=== PATIENT | male | born 1960 | race African-American/Black ===

== ENCOUNTER 2017-12-30 10:43 | Inpatient (IN) | payer OTHER ==
[2017-12-30 11:10] VITALS: BMI 43.4
--- NOTE | 2017-12-30 13:47 | HP ---
CIWA Score - CIWA Score Nausea/Vomitin-No Nausea/No Vomiting Muscle Tremors: 3 Anxiety: 4-Mod. Anxious/Guarded Agitation: 4-Moderately Restless Paroxysmal Sweats: 3 Orientation: 0-Oriented Tacttile Disturbances: 2-Mild Itch/Numbness/Burn Auditory Disturbances: 0-None Visual Disturbances: 0-None Headache: 0-None Present CIWA-Ar Total Score: 16 Admission ROS BHS - HPI Chief Complaint: "I came here to Detox and to try to jumpstart my life and get back on track." Patient is here to Detox from Alcohol. Allergies/Adverse Reactions: Allergies Allergy/AdvReac Type Severity Reaction Status Date / Time lisinopril Allergy Severe Swelling Verified 12/30/17 12:54 History of Present Illness: Patient is a 57 YO male here to Detox from Alcohol. This is patient's first Detox admission at [facility]. Patient had a Detox and Rehab admission at the [facility] ( [place] in 2017. Longest period of Sobriety in recent years: approx. 8 months (2016). Exam Limitations: No Limitations - Ebola screening Have you traveled outside of the country in the last 21 days: No Have you had contact with anyone from an Ebola affected area: No Have you been sick,other than usual withdrawal symptoms: No Do you have a fever: No - Review of Systems Constitutional: Diaphoresis, Malaise, Night Sweats, Changes in sleep EENT: reports: Hearing Loss (Patient reports that "he got a piece of cotton stuck in his right ear" approx. 2 months ago and that his hearing has been affected by it. Patient reports that he will go to [facility] to follow-up for this after Discharge.), Nose Congestion, Sinus Pressure Respiratory: reports: No Symptoms reported Cardiac: reports: No Symptoms Reported GI: reports: Nausea : reports: Frequency Musculoskeletal: reports: Back Pain, Joint Pain, Joint Stiffness Integumentary: reports: No Symptoms Reported Neuro: reports: Tremors Endocrine: reports: No Symptoms Reported Hematology: reports: No Symptoms Reported Psychiatric: reports: Judgement Intact, Mood/Affect Appropiate, Orientated x3 Other Systems: Reviewed and Negative Patient History - Patient Medical History Hx Anemia: No Hx Asthma: No Hx Chronic Obstructive Pulmonary Disease (COPD): No Hx Cancer: No Hx Cardiac Disorders: Yes (Congestive Heart Failure; On meds.) Hx Congestive Heart Failure: Yes (On meds.) Hx Hypertension: Yes (On meds.) Hx Hypercholesterolemia: No (In past, Not currently.) Hx Pacemaker: No HX Cerebrovascular Accident: No Hx Seizures: No Hx Dementia: No Hx Diabetes: No Hx Gastrointestinal Disorders: No Hx Liver Disease: Yes (Hep B in past; Resolved without medication.) Hx Genitourinary Disorders: No Hx Sexually Transmitted Disorders: Yes (gonorrhea; Treated.) Hx Renal Disease (ESRD): No Hx Thyroid Disease: No Hx Human Immunodeficiency Virus (HIV): No (Last Tested: 11/2016:NEGATIVE.) Hx Hepatitis C: No (Last Tested: 12/2016:NEGATIVE.) Hx Depression: No Hx Suicide Attempt: No (PATIENT DENIES CURRENT SI / HI.) Hx Bipolar Disorder: Yes (On meds.) Hx Schizophrenia: No Other Medical History: DENIES. - Patient Surgical History Past Surgical History: Yes Hx Neurologic Surgery: No Hx Cataract Extraction: No Hx Cardiac Surgery: No Hx Lung Surgery: No Hx Breast Surgery: No Hx Breast Biopsy: No Hx Abdominal Surgery: No Hx Appendectomy: No Hx Cholecystectomy: No Hx Genitourinary Surgery: No Hx Section: No Hx Orthopedic Surgery: No Other Surgical History: hemorrhoidectomy in 2009/terndon repair, left achiles heel in 1996 Anesthesia Reaction: No - PPD History Previous Implant?: Yes Documented Results: Positive w/o proof Implanted On Prior R Admission?: No PPD to be Administered?: No - Reproductive History Patient is a Female of Child Bearing Age (11 -55 yrs old): No (PATIENT IS MALE.) - Smoking Cessation Smoking history: Current every day smoker (Patient declines Nicotine Replacement Patch and Gum.) Have you smoked in the past 12 months: Yes Aproximately how many cigarettes per day: 5 Cigars Per Day: 0 Hx Chewing Tobacco Use: No Initiated information on smoking cessation: Yes 'Breaking Loose' booklet given: 12/30/17 (GIVEN TO PATIENT.) - Substance & Tx. History Hx Alcohol Use: Yes Hx Substance Use: Yes Substance Use Type: Alcohol, Cocaine, Marijuana Hx Substance Use Treatment: Yes (Previous Detox/[facility] admissions Last: [facility] ( [place]): 2017.) - Substances Abused Crack Route: Smoking Frequency: Daily Amount used: $60-70 Age of first use: 34 Date of Last Use: 12/28/17 Alcohol-beer Route: Oral Frequency: Daily Amount used: 10 (25 oz.) Age of first use: 13 Date of Last Use: 12/30/17 Marijuana Route: Smoking Frequency: Daily Amount used: $10 Age of first use: 12 Date of Last Use: 12/28/17 Family Disease History - Family Disease History Family Disease History: Heart Disease: Mother (HTN) Admission Physical Exam [facility] - Vital Signs Vital Signs: Vital Signs - 24 hr 12/30/17 11:04 Temperature 97.2 F L Pulse Rate 73 Respiratory 18 Rate Blood Pressure 183/94 - Physical General Appearance: Yes: No Apparent Distress, Nourished, Appropriately Dressed , Tremorous, Anxious HEENTM: Yes: Hearing grossly Normal, Normocephalic, Normal Voice, JOVI, Pharynx Normal Respiratory: Yes: Chest Non-Tender, Lungs Clear, No Respiratory Distress, No Accessory Muscle Use Neck: Yes: No masses,lesions,Nodules, Supple, Trachea in good position Breast: Yes: Breast Exam Deferred Cardiology: Yes: Regular Rhythm, Regular Rate, S1, S2 Abdominal: Yes: Normal Bowel Sounds, Non Tender, Soft, Protuberent Genitourinary: Yes: Frequency Back: Yes: Decreased Range of Motion Musculoskeletal: Yes: Gait Steady, Back pain, Joint Stiffness Extremities: Yes: Normal Capillary Refill, Normal Range of Motion, Non-Tender, Tremors Neurological: Yes: Fully Oriented, Alert, Normal Mood/Affect, Normal Response Integumentary: Yes: Normal Color, Dry, Warm Lymphatic: Yes: Within Normal Limits - Diagnostic (1) Alcohol dependence with uncomplicated withdrawal Current Visit: Yes Status: Acute (2) Cocaine dependence, uncomplicated Current Visit: Yes Status: Chronic (3) Cannabis dependence, uncomplicated Current Visit: Yes Status: Chronic (4) Nicotine dependence Current Visit: Yes Status: Chronic Qualifiers: Nicotine product type: cigarettes Substance use status: uncomplicated Qualified Code(s): F17.210 - Nicotine dependence, cigarettes, uncomplicated (5) Hypertension Current Visit: Yes Status: Chronic Qualifiers: Hypertension type: essential hypertension Qualified Code(s): I10 - Essential (primary) hypertension (6) Congestive heart failure (CHF) Current Visit: Yes Status: Chronic Qualifiers: Heart failure type: unspecified Heart failure chronicity: unspecified Qualified Code(s): I50.9 - Heart failure, unspecified (7) History of bipolar disorder Current Visit: Yes Status: Suspected (8) Hemorrhoids Current Visit: Yes Status: Chronic Qualifiers: Hemorrhoid type: unspecified Qualified Code(s): K64.9 - Unspecified hemorrhoids (9) History of positive PPD Current Visit: Yes Status: Chronic Cleared for Admission [facility] - Detox or Rehab [facility] Level of Care: Medically Managed Detox Regimen/Protocol: Librium [facility] Breath Alcohol Content Breath Alcohol Content: 0 Urine Drug Screen - Results Drug Screen Negative: Yes Urine Drug Screen Results: THC-Marijuana, ARIANA-Cocaine
[2017-12-30] MEDS ORDERED: ACETAMINOPHEN 325 MG TABLET (FP) PO PRN (14:18)
[2017-12-30] MEDS ORDERED: IBUPROFEN 400 MG TABLET (FP) PO PRN (14:18)
[2017-12-30] MEDS ORDERED: MAGNESIUM CITRATE 300 ML BOTTLE PO PRN (14:18)
[2017-12-30] MEDS ORDERED: MENTHOL/PHENOL 1 EACH UD MM PRN (14:18)
[2017-12-30] MEDS ORDERED: LOPERAMIDE HCL 2 MG CAPSULE PO PRN (14:18)
[2017-12-30] MEDS ORDERED: MAGNESIUM HYDROX 2400MG/30ML ORAL SUSPENSION 30 ML CUP PO PRN (14:18)
[2017-12-30] MEDS ORDERED: P-EPHED 60MG/TRIPROLIDI 2.5MG TABLET PO PRN (14:18)
[2017-12-30] MEDS ORDERED: MAG HYDROX/AL HYDROX/SIMETH 30 ML UNIT-DOSE CUP PO PRN (14:18)
[2017-12-30] MEDS ORDERED: chlordiazePOXIDE HCL 25 MG CAPSULE PO PRN (14:18)
[2017-12-30] MEDS ORDERED: guaiFENesin/D-METHORPHAN HB 10 ML UNIT-DOSE CUPS PO PRN (14:18)
[2017-12-30] MEDS ORDERED: DOCUSATE SODIUM 100 MG CAPSULE (FP) PO PRN (14:22)
[2017-12-30] MEDS ORDERED: WITCH HAZEL 50% (TUCKS) 40 PAD/JAR PAD TP PRN (14:22)
[2017-12-30] MEDS ORDERED: BENZOCAINE 28 GM HEMORRHOIDAL OINTMENT PR PRN (14:23)
[2017-12-30] MEDS ORDERED: chlordiazePOXIDE HCL 25 MG CAPSULE PO ONE (15:30)
[2017-12-30] MEDS: ASPIRIN 81 MG CHEWABLE TABLETS PO SCH (15:44)
[2017-12-30 16:58] LABS: HEMOGLOBIN 12.8 GM/dL (11.7-16.9)
[2017-12-30 17:00] LABS: HEMATOCRIT 37.8 % (35.4-49); MCH 31.9 pg (25.7-33.7); MCHC 33.9 g/dl (32.0-35.9); MEAN CELL VOLUME 94.1 fl (80-96); MEAN PLT VOLUME 8.4 fl (7.5-11.1); PLATELET COUNT 233 K/MM3 (134-434); RBC 4.02 M/mm3 (4.00-5.60); RDW 13.8 % (11.9-15.9); WHITE BLOOD COUNT 4.7 K/mm3 (4.0-10.0)
[2017-12-30] MEDS: chlordiazePOXIDE HCL 25 MG CAPSULE PO SCH ×2 (17:09→22:08)
[2017-12-30 17:37] LABS: URINE APPEARANCE SLCLOUDY; URINE BILIRUBIN NEGATIVE (<2.0 mg/dL); URINE COLOR YELLOW; URINE GLUCOSE (UA) NEGATIVE (NEGATIVE); URINE KETONE NEGATIVE (NEGATIVE); URINE LEUK ESTERASE NEGATIVE (NEGATIVE); URINE NITRITE NEGATIVE (NEGATIVE)
[2017-12-30 17:47] LABS: URINE PROTEIN 1+ (NEGATIVE)
[2017-12-30 18:08] LABS: EPI CELLS RARE /HPF (FEW); URINE MUCUS RARE
[2017-12-30 19:16] LABS: ALBUMIN 3.3 g/dl (3.4-5.0); ANION GAP 6 (8-16); BLOOD UREA NITROGEN 18 mg/dL (7-18); CALCIUM 8.1 mg/dL (8.5-10.1); CHLORIDE 111 mmol/L (98-107); CO2 26 mmol/L (21-32); GLUCOSE,RANDOM 135 mg/dL (74-106); POTASSIUM 3.8 mmol/L (3.5-5.1); SGPT/ALT 27 U/L (12-78); SODIUM 143 mmol/L (136-145)
[2017-12-30 19:19] LABS: ALK PHOS 83 U/L (45-117); BILIRUBIN,TOTAL 0.3 mg/dL (0.2-1.0); CREATININE 1.4 mg/dL (0.7-1.3); SGOT/AST 23 U/L (15-37)
[2017-12-30] MEDS ORDERED: MELATONIN 5 MG TABLETS PO PRN (22:00)
[2017-12-30] MEDS: THIAMINE HCL 100 MG TABLET (FP) PO SCH (22:08)
[2017-12-30] MEDS: MICONAZOLE NITRATE TP SCH (22:09)
[2017-12-30] MEDS: CARVEDILOL 25 MG TABLET (FP) PO SCH (22:09)
[2017-12-30] MEDS: ISOSORBIDE DINITRATE 10 MG TABLET (FP) PO SCH (22:09)
[2017-12-30] MEDS: SACUBITRIL/VALSARTAN 24 MG-26 MG TABLET PO SCH (22:09)
[2017-12-30] MEDS: hydrALAZINE HCL 50 MG TABLET (FP) PO SCH (22:09)
[2017-12-31] MEDS: chlordiazePOXIDE HCL 25 MG CAPSULE PO SCH ×4 (05:31→22:11)
[2017-12-31] MEDS: ISOSORBIDE DINITRATE 10 MG TABLET (FP) PO SCH ×3 (07:41→22:12)
[2017-12-31] MEDS: hydrALAZINE HCL 50 MG TABLET (FP) PO SCH ×3 (07:41→22:11)
--- NOTE | 2017-12-31 09:51 | EKG ---
Test Reason : Blood Pressure : / mmHG Vent. Rate : 072 BPM Atrial Rate : 072 BPM P-R Int : 196 ms QRS Dur : 104 ms QT Int : 424 ms P-R-T Axes : 064 041 -32 degrees QTc Int : 464 ms NORMAL SINUS RHYTHM T WAVE ABNORMALITY, CONSIDER INFERIOR ISCHEMIA ABNORMAL ECG NO PREVIOUS ECGS AVAILABLE Confirmed by LESTER CORTÉS MD ([id number]) on 12/31/2017 9:51:43 AM Referred By: Confirmed By:LESTER CORTÉS MD
[2017-12-31] MEDS: CARVEDILOL 25 MG TABLET (FP) PO SCH ×2 (10:23→22:11)
[2017-12-31] MEDS: FUROSEMIDE 40 MG TABLET (FP) PO SCH (10:23)
[2017-12-31] MEDS: PRENATAL VITAMINS W/ FOLIC ACID TABLET (FP) PO SCH (10:23)
[2017-12-31] MEDS: SPIRONOLACTONE 25 MG TABLET (FP) PO SCH (10:23)
[2017-12-31] MEDS: SACUBITRIL/VALSARTAN 24 MG-26 MG TABLET PO SCH ×2 (10:23→22:11)
[2017-12-31] MEDS: ASPIRIN 81 MG CHEWABLE TABLETS PO SCH (10:23)
[2017-12-31] MEDS: MICONAZOLE NITRATE TP SCH ×2 (10:24→22:13)
--- NOTE | 2017-12-31 12:47 | PN ---
S CIWA - CIWA Score Nausea/Vomitin-No Nausea/No Vomiting Muscle Tremors: 4-Moderate,w/Arms Extend Anxiety: 4-Mod. Anxious/Guarded Agitation: 4-Moderately Restless Paroxysmal Sweats: 3 Orientation: 0-Oriented Tacttile Disturbances: 0-None Auditory Disturbances: 0-None Visual Disturbances: 0-None Headache: 0-None Present CIWA-Ar Total Score: 15 BHS Progress Note (SOAP) Subjective: ANXIETY,SWEATS,SLIGHT TREMORS,FATIGUE Objective: 12/31/17 12:46 Vital Signs Temperature 95.6 F L 12/31/17 10:02 Pulse Rate 71 12/31/17 10:02 Respiratory Rate 18 12/31/17 10:02 Blood Pressure 118/64 12/31/17 10:02 O2 Sat by Pulse Oximetry (%) Laboratory Tests 12/30/17 12/30/17 12/30/17 06:30 14:40 14:40 WBC 4.7 RBC 4.02 Hgb 12.8 Hct 37.8 MCV 94.1 MCH 31.9 MCHC 33.9 RDW 13.8 Plt Count 233 MPV 8.4 Sodium 143 Potassium 3.8 Chloride 111 H Carbon Dioxide 26 Anion Gap 6 L BUN 18 Creatinine 1.4 H Creat Clearance w eGFR 52.62 Random Glucose 135 H Calcium 8.1 L Total Bilirubin 0.3 AST 23 ALT 27 Alkaline Phosphatase 83 Total Protein 7.0 Albumin 3.3 L Urine Color Urine Appearance Urine pH Ur Specific [place] Urine Protein Urine Glucose (UA) Urine Ketones Urine Blood Urine Nitrite Urine Bilirubin Urine Urobilinogen Ur Leukocyte Esterase Urine WBC (Auto) Urine RBC (Auto) Ur Epithelial Cells Urine Mucus RPR Titer HIV 1&2 Antibody Screen Negative HIV P24 Antigen Negative 12/30/17 12/30/17 14:40 17:07 WBC RBC Hgb Hct MCV MCH MCHC RDW Plt Count MPV Sodium Potassium Chloride Carbon Dioxide Anion Gap BUN Creatinine Creat Clearance w eGFR Random Glucose Calcium Total Bilirubin AST ALT Alkaline Phosphatase Total Protein Albumin Urine Color Yellow Urine Appearance Slcloudy Urine pH 5.0 Ur Specific [place] 1.031 Urine Protein 1+ H Urine Glucose (UA) Negative Urine Ketones Negative Urine Blood Negative Urine Nitrite Negative Urine Bilirubin Negative Urine Urobilinogen 2.0 Ur Leukocyte Esterase Negative Urine WBC (Auto) 4 Urine RBC (Auto) 10 Ur Epithelial Cells Rare Urine Mucus Rare RPR Titer Nonreactive HIV 1&2 Antibody Screen HIV P24 Antigen Assessment: 12/31/17 12:47 WITHDRAWAL SX Plan: CONTINUE DETOX
--- NOTE | 2017-12-31 15:12 | CONSULT ---
[facility] Psychiatric Consult - Data Date of interview: 12/31/17 Admission source: [facility] Identifying data: First admission to [facility] for this 57 y/o AA male seeking detox treatment on for alcohol,cocaine (crack) and cannabis dependence.Patient is ,a father of nine,domiciled,unemployed and supported on SSI benefits. Substance Abuse History: Confirmed by patient in this interview.Details in current [facility] report : Smoking history: Current every day smoker (Patient declines Nicotine Replacement Patch and Gum.). Have you smoked in the past 12 months: Yes. Aproximately how many cigarettes per day: 5. Cigars Per Day: 0. Hx Chewing Tobacco Use: No. Initiated information on smoking cessation: Yes. ' Breaking Loose' booklet given: 12/30/17 (GIVEN TO PATIENT.). - Substance & Tx. History. Hx Alcohol Use: Yes. Hx Substance Use: Yes. Substance Use Type: Alcohol, Cocaine, Marijuana. Hx Substance Use Treatment: Yes (Previous Detox/ [facility] admissions Last: [facility] ([place]): 2017.). - Substances Abused. Crack. Route: Smoking. Frequency: Daily. Amount used: $60-70. Age of first use: 34. Date of Last Use: 12/28/17. Alcohol-beer. Route: Oral. Frequency : Daily. Amount used: 10 (25 oz.). Age of first use: 13. Date of Last Use: . Marijuana. Route: Smoking. Frequency: Daily. Amount used: $10. Age of first use: 12. Date of Last Use: 12/28/17 Medical History: Hypertension,congestive heart failure (CHF),antecedent of hepatitis B / gonorrhea and a history of hemorrhoidectomy + orthosurgery ( repair of left Achilles tendon in 1991). Psychiatric History: Patient admits to one psychiatric hospitalization (2010) at the [facility].Diagnosed with MDD.Was prescribed paxil and buspar.Mr Weiss argues against his diagnosis and " sees no reason " to be on antidepressant medications.He remmbers past treatment on a regimen of valproate, trazodone and zolpidem.Declares that he would not resume " such things because of their nasty side effects " in reference to sexual issues,weight gain and sedation.Patient states that he has stopped taking any psychotropic medications since 2011.Denies history of suicide attempts. Physical/Sexual Abuse/Trauma History: Patient denies. Additional Comment: Urine Drug Screen Results: THC-Marijuana, ARIANA-Cocaine.Noted. Mental Status Exam - Mental Status Exam Alert and Oriented to: Time, Place, Person Cognitive Function: Good Patient Appearance: Well Groomed (obese,short stature) Mood: Hopeful, Euthymic Affect: Appropriate, Normal Range Patient Behavior: Cooperative Speech Pattern: Clear, Appropriate Voice Loudness: Normal Thought Process: Intact, Goal Oriented Thought Disorder: Not Present Hallucinations: Denies Suicidal Ideation: Denies Homicidal Ideation: Denies Insight/Judgement: Poor Sleep: Well Appetite: Good Muscle strength/Tone: Normal Gait/Station: Normal Psychiatric Findings - Problem List ([place] 1, 2,3) (1) Alcohol dependence with uncomplicated withdrawal Current Visit: Yes Status: Acute (2) Cannabis dependence, uncomplicated Current Visit: Yes Status: Acute (3) Cocaine dependence, uncomplicated Current Visit: Yes Status: Acute (4) Nicotine dependence Current Visit: Yes Status: Acute Qualifiers: Nicotine product type: cigarettes Substance use status: in withdrawal Qualified Code(s): F17.213 - Nicotine dependence, cigarettes, with withdrawal (5) History of bipolar disorder Current Visit: Yes Status: Suspected - Initial Treatment Plan Initial Treatment Plan: Psychoeducation.Detoxification.Patient is made aware of the benefits of adherence to mood stabilizers and the negative consequences of denial of condition / refusal of care.Mr Weiss maintains his decision to abstain from medications other than drugs necessary for detoxification purposes.Observation.
[2017-12-31] MEDS: THIAMINE HCL 100 MG TABLET (FP) PO SCH (22:11)
[2018-01-01] MEDS: chlordiazePOXIDE HCL 25 MG CAPSULE PO SCH ×2 (05:58→10:41)
[2018-01-01] MEDS: hydrALAZINE HCL 50 MG TABLET (FP) PO SCH ×3 (05:59→22:25)
[2018-01-01] MEDS: ISOSORBIDE DINITRATE 10 MG TABLET (FP) PO SCH ×3 (05:59→22:27)
[2018-01-01] MEDS: FUROSEMIDE 40 MG TABLET (FP) PO SCH (10:41)
[2018-01-01] MEDS: ASPIRIN 81 MG CHEWABLE TABLETS PO SCH (10:41)
[2018-01-01] MEDS: PRENATAL VITAMINS W/ FOLIC ACID TABLET (FP) PO SCH (10:41)
[2018-01-01] MEDS: SPIRONOLACTONE 25 MG TABLET (FP) PO SCH (10:41)
[2018-01-01] MEDS: CARVEDILOL 25 MG TABLET (FP) PO SCH ×2 (10:42→22:25)
[2018-01-01] MEDS: SACUBITRIL/VALSARTAN 24 MG-26 MG TABLET PO SCH ×2 (10:42→22:25)
[2018-01-01] MEDS: MICONAZOLE NITRATE TP SCH ×2 (10:45→22:28)
--- NOTE | 2018-01-01 13:54 | PN ---
[facility] CIWA - CIWA Score Nausea/Vomitin-No Nausea/No Vomiting Muscle Tremors: 2 Anxiety: 3 Agitation: 4-Moderately Restless Paroxysmal Sweats: 3 Orientation: 0-Oriented Tacttile Disturbances: 3-Moderate Itch/Numb/Burn Auditory Disturbances: 1-Very Mild Visual Disturbances: 0-None Headache: 0-None Present CIWA-Ar Total Score: 16 BHS Progress Note (SOAP) Subjective: Sweating, Fatigue, Anxious. Objective: PATIENT A & O X 3, OBSERVED AMBULATING ON UNIT. NO ACUTE DISTRESS. PATIENT DENIES CHEST PAIN, DIZZINESS, AND CHEST PAIN. 01/01/18 13:51 Vital Signs Temperature 96.7 F L 01/01/18 09:26 Pulse Rate 77 01/01/18 09:26 Respiratory Rate 18 01/01/18 09:26 Blood Pressure 157/88 01/01/18 09:26 O2 Sat by Pulse Oximetry (%) Laboratory Tests 12/30/17 12/30/17 12/30/17 06:30 14:40 14:40 WBC 4.7 RBC 4.02 Hgb 12.8 Hct 37.8 MCV 94.1 MCH 31.9 MCHC 33.9 RDW 13.8 Plt Count 233 MPV 8.4 Sodium 143 Potassium 3.8 Chloride 111 H Carbon Dioxide 26 Anion Gap 6 L BUN 18 Creatinine 1.4 H Creat Clearance w eGFR 52.62 Random Glucose 135 H Calcium 8.1 L Total Bilirubin 0.3 AST 23 ALT 27 Alkaline Phosphatase 83 Total Protein 7.0 Albumin 3.3 L Urine Color Urine Appearance Urine pH Ur Specific [place] Urine Protein Urine Glucose (UA) Urine Ketones Urine Blood Urine Nitrite Urine Bilirubin Urine Urobilinogen Ur Leukocyte Esterase Urine WBC (Auto) Urine RBC (Auto) Ur Epithelial Cells Urine Mucus RPR Titer Hep C Ab Diagnostic Liver Fibrosis Interp HIV 1&2 Antibody Screen Negative HIV P24 Antigen Negative 12/30/17 12/30/17 12/30/17 14:40 14:40 17:07 WBC RBC Hgb Hct MCV MCH MCHC RDW Plt Count MPV Sodium Potassium Chloride Carbon Dioxide Anion Gap BUN Creatinine Creat Clearance w eGFR Random Glucose Calcium Total Bilirubin AST ALT Alkaline Phosphatase Total Protein Albumin Urine Color Yellow Urine Appearance Slcloudy Urine pH 5.0 Ur Specific [place] 1.031 Urine Protein 1+ H Urine Glucose (UA) Negative Urine Ketones Negative Urine Blood Negative Urine Nitrite Negative Urine Bilirubin Negative Urine Urobilinogen 2.0 Ur Leukocyte Esterase Negative Urine WBC (Auto) 4 Urine RBC (Auto) 10 Ur Epithelial Cells Rare Urine Mucus Rare RPR Titer Nonreactive Hep C Ab Diagnostic <0.1 Liver Fibrosis Interp HIV 1&2 Antibody Screen HIV P24 Antigen LABS NOTED. 01/01/18 13:51 Assessment: 01/01/18 13:51 WITHDRAWAL SYMPTOMS. Plan: CONTINUE DETOX. PATIENT REFUSED TO TAKE LASIX EARLIER THIS AM PRESCRIBED, DESPITE ENCOURAGEMENT FROM PATIENT'S RN. WILL CONTINUE TO MONITOR BP.
[2018-01-01] MEDS: chlordiazePOXIDE 5 MG CAPSULE PO SCH ×2 (18:04→22:25)
[2018-01-01] MEDS: THIAMINE HCL 100 MG TABLET (FP) PO SCH (22:25)
[2018-01-02] MEDS: ISOSORBIDE DINITRATE 10 MG TABLET (FP) PO SCH ×3 (05:54→22:25)
[2018-01-02] MEDS: hydrALAZINE HCL 50 MG TABLET (FP) PO SCH ×3 (05:54→22:25)
[2018-01-02] MEDS: chlordiazePOXIDE 5 MG CAPSULE PO SCH ×2 (05:54→10:39)
[2018-01-02] MEDS: FUROSEMIDE 40 MG TABLET (FP) PO SCH (07:46)
[2018-01-02] MEDS: PRENATAL VITAMINS W/ FOLIC ACID TABLET (FP) PO SCH (10:39)
[2018-01-02] MEDS: SACUBITRIL/VALSARTAN 24 MG-26 MG TABLET PO SCH ×2 (10:39→22:24)
[2018-01-02] MEDS: SPIRONOLACTONE 25 MG TABLET (FP) PO SCH (10:39)
[2018-01-02] MEDS: CARVEDILOL 25 MG TABLET (FP) PO SCH ×2 (10:39→22:24)
[2018-01-02] MEDS: ASPIRIN 81 MG CHEWABLE TABLETS PO SCH (10:39)
[2018-01-02] MEDS: MICONAZOLE NITRATE TP SCH ×2 (10:40→22:25)
--- NOTE | 2018-01-02 12:19 | PN ---
S Progress Note (SOAP) Subjective: PT LYING IN BED. ALERT O X 3. NO DIZZINESS OR CHEST PAIN- DENIES ACUTE DISTRESS BUT SLIGHTLY IRRITABLE AND AGITATED OVER QUESTIONS ABOUT HIS MEDICATIONS. PT'S HOME MEDS WAS REVIEWED WITH PATIENT AND HE CONFIRMED THEM ALL TO BE CORRECT AND CURRENTLY TAKING THEM DUE TO HIS UNCONTROLLED BLOOD PRESSURE AND CHF. PT PREVIOUS SHIFTS REFUSING SOME OF HIS MEDS PER NURSES REPORT. PT TOOK HIS MEDS THIS SHIFT. Objective: 01/02/18 12:18 Vital Signs Temperature 96.6 F L 01/02/18 09:26 Pulse Rate 77 01/02/18 09:26 Respiratory Rate 18 01/02/18 09:26 Blood Pressure 147/84 01/02/18 09:26 O2 Sat by Pulse Oximetry (%) Laboratory Last Values WBC 4.7 K/mm3 (4.0-10.0) 12/30/17 14:40 RBC 4.02 M/mm3 (4.00-5.60) 12/30/17 14:40 Hgb 12.8 GM/dL (11.7-16.9) 12/30/17 14:40 Hct 37.8 % (35.4-49) 12/30/17 14:40 MCV 94.1 fl (80-96) 12/30/17 14:40 MCH 31.9 pg (25.7-33.7) 12/30/17 14:40 MCHC 33.9 g/dl (32.0-35.9) 12/30/17 14:40 RDW 13.8 % (11.9-15.9) 12/30/17 14:40 Plt Count 233 K/MM3 (134-434) 12/30/17 14:40 MPV 8.4 fl (7.5-11.1) 12/30/17 14:40 Sodium 143 mmol/L (136-145) 12/30/17 14:40 Potassium 3.8 mmol/L (3.5-5.1) 12/30/17 14:40 Chloride 111 mmol/L (98-107) H 12/30/17 14:40 Carbon Dioxide 26 mmol/L (21-32) 12/30/17 14:40 Anion Gap 6 (8-16) L 12/30/17 14:40 BUN 18 mg/dL (7-18) 12/30/17 14:40 Creatinine 1.4 mg/dL (0.7-1.3) H 12/30/17 14:40 Creat Clearance w eGFR 52.62 (>60) 12/30/17 14:40 Random Glucose 135 mg/dL (74-106) H 12/30/17 14:40 Calcium 8.1 mg/dL (8.5-10.1) L 12/30/17 14:40 Total Bilirubin 0.3 mg/dL (0.2-1.0) 12/30/17 14:40 AST 23 U/L (15-37) 12/30/17 14:40 ALT 27 U/L (12-78) 12/30/17 14:40 Alkaline Phosphatase 83 U/L (45-117) 12/30/17 14:40 Total Protein 7.0 g/dl (6.4-8.2) 12/30/17 14:40 Albumin 3.3 g/dl (3.4-5.0) L 12/30/17 14:40 Urine Color Yellow 12/30/17 17:07 Urine Appearance Slcloudy 12/30/17 17:07 Urine pH 5.0 (5.0-8.0) 12/30/17 17:07 Ur Specific [place] 1.031 (1.001-1.035) 12/30/17 17:07 Urine Protein 1+ (NEGATIVE) H 12/30/17 17:07 Urine Glucose (UA) Negative (NEGATIVE) 12/30/17 17:07 Urine Ketones Negative (NEGATIVE) 12/30/17 17:07 Urine Blood Negative (NEGATIVE) 12/30/17 17:07 Urine Nitrite Negative (NEGATIVE) 12/30/17 17:07 Urine Bilirubin Negative (<2.0 mg/dL) 12/30/17 17:07 Urine Urobilinogen 2.0 mg/dL (0.2-1.0) 12/30/17 17:07 Ur Leukocyte Esterase Negative (NEGATIVE) 12/30/17 17:07 Urine WBC (Auto) 4 /hpf (3-5) 12/30/17 17:07 Urine RBC (Auto) 10 /hpf (0-3) 12/30/17 17:07 Ur Epithelial Cells Rare /HPF (FEW) 12/30/17 17:07 Urine Mucus Rare 12/30/17 17:07 RPR Titer Nonreactive (NONREACTIVE) 12/30/17 14:40 Hep C Ab Diagnostic <0.1 s/co ratio (0.0-0.9) 12/30/17 14:40 Liver Fibrosis Interp (.) 12/30/17 14:40 HIV 1&2 Antibody Screen Negative 12/30/17 06:30 HIV P24 Antigen Negative 12/30/17 06:30 Assessment: 01/02/18 12:19 WITHDRAWAL SX Plan: CONTINUE DETOX MONITOR PT FOLLOW UP WITH YOUR PMD AT THE [facility] NEEDED.
[2018-01-02] MEDS: chlordiazePOXIDE HCL 10 MG CAPSULE PO SCH ×2 (17:38→22:24)
[2018-01-02] MEDS: THIAMINE HCL 100 MG TABLET (FP) PO SCH (22:25)
[2018-01-03] MEDS: hydrALAZINE HCL 50 MG TABLET (FP) PO SCH ×2 (05:16→14:31)
[2018-01-03] MEDS: chlordiazePOXIDE HCL 10 MG CAPSULE PO SCH ×2 (05:16→10:30)
[2018-01-03] MEDS: ISOSORBIDE DINITRATE 10 MG TABLET (FP) PO SCH ×2 (05:17→14:31)
[2018-01-03] MEDS: FUROSEMIDE 40 MG TABLET (FP) PO SCH (07:23)
[2018-01-03 09:13] VITALS: BP 144/91; PULSE 75; TEMP 97.6
[2018-01-03] MEDS: PRENATAL VITAMINS W/ FOLIC ACID TABLET (FP) PO SCH (10:25)
[2018-01-03] MEDS: SPIRONOLACTONE 25 MG TABLET (FP) PO SCH (10:25)
[2018-01-03] MEDS: CARVEDILOL 25 MG TABLET (FP) PO SCH (10:25)
[2018-01-03] MEDS: ASPIRIN 81 MG CHEWABLE TABLETS PO SCH (10:25)
[2018-01-03] MEDS: SACUBITRIL/VALSARTAN 24 MG-26 MG TABLET PO SCH (10:26)
[2018-01-03] MEDS: MICONAZOLE NITRATE TP SCH (10:29)
--- NOTE | 2018-01-03 11:23 | PN ---
S Progress Note (SOAP) Subjective: "I feel good" Objective: 01/03/18 11:22 A & O x 3 Anxious Irritable Gait steady, no acute distress Vital Signs Temperature 97.6 F 01/03/18 09:12 Pulse Rate 75 01/03/18 09:12 Respiratory Rate 18 01/03/18 09:12 Blood Pressure 144/91 01/03/18 09:12 O2 Sat by Pulse Oximetry (%) Assessment: 01/03/18 11:22 Detox safely concluded Plan: For d/c
--- NOTE | 2018-01-03 13:25 | DS ---
[facility] Detox Discharge Summary Admission Date: 12/30/17 Discharge Date: 01/03/18 - History Additional Comments: Pt A & O x 3, gait steady, in stable condition. For discharge today Pt going home and will do Aftercare @ [facility] where they are working on a bed for him by wednesday. 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 Pertinent Past History: HTN, CHF, Hemorrhoids Hx of positive PPD Bipolar - Physical Exam Results Vital Signs: Vital Signs Temperature 97.6 F 01/03/18 09:12 Pulse Rate 75 01/03/18 09:12 Respiratory Rate 01/03/18 09:12 Blood Pressure 144/91 01/03/18 09:12 O2 Sat by Pulse Oximetry (%) Pertinent Admission Physical Exam Findings: withdrawal sx - Treatment Hospital Course: Detox Protocol Followed, Detoxed Safely, Responded well, Discharged Condition Good Patient has Accepted a Rehab Referral to: AA meetings, ?[facility] - Medication Discharge Medications: Ambulatory Orders Docusate Sodium [Colace -] 100 mg PO TID 12/30/17 Furosemide [Lasix] 80 mg PO DAILY 12/30/17 Hydralazine HCl 50 mg PO TID 12/30/17 Isosorbide Dinitrate [Isordil -] 30 mg PO TID 12/30/17 Miconazole Nitrate [Fungoid Tincture] 1 each TP BID 12/30/17 Sacubitril/Valsartan [Entresto 24 mg-26 mg Tablet] 1 each PO BID 12/30/17 Aspirin [ASA -] 81 mg PO DAILY 30 Days #30 tab.chew 01/03/18 Carvedilol [Coreg -] 25 mg PO BID 30 Days #60 tablet 01/03/18 Spironolactone [Aldactone -] 25 mg PO DAILY 30 Days #30 tablet 01/03/18 - Diagnosis (1) Alcohol dependence with uncomplicated withdrawal Current Visit: Yes Status: Acute (2) Cannabis dependence, uncomplicated Current Visit: Yes Status: Chronic (3) Cocaine dependence, uncomplicated Current Visit: Yes Status: Chronic (4) Nicotine dependence Current Visit: Yes Status: Acute Qualifiers: Nicotine product type: cigarettes Substance use status: in withdrawal Qualified Code(s): F17.213 - Nicotine dependence, cigarettes, with withdrawal (5) Congestive heart failure (CHF) Current Visit: Yes Status: Chronic Qualifiers: Heart failure type: unspecified Heart failure chronicity: unspecified Qualified Code(s): I50.9 - Heart failure, unspecified (6) Hemorrhoids Current Visit: Yes Status: Chronic Qualifiers: Hemorrhoid type: unspecified Qualified Code(s): K64.9 - Unspecified hemorrhoids (7) History of positive PPD Current Visit: Yes Status: Chronic (8) Hypertension Current Visit: Yes Status: Chronic Qualifiers: Hypertension type: essential hypertension Qualified Code(s): I10 - Essential (primary) hypertension (9) History of bipolar disorder Current Visit: Yes Status: Suspected - AMA Did Patient Leave Against Medical Advice: No
== END 2018-01-03 15:35 | disposition home or self-care (01) | DRG 774 ==
LOC: YASAS 10:43 → Y3N 14:54
PROVIDERS: ADMIT Internal Medicine; ATTEND Internal Medicine
PROC: HZ2ZZZZ Detoxification Services for Substance Abuse Treatment (ICD-10-PCS; principal; 2017-12-30)
DX: F10.230 Alcohol dependence with withdrawal, uncomplicated (principal); F14.20 Cocaine dependence, uncomplicated; F12.20 Cannabis dependence, uncomplicated; F17.210 Nicotine dependence, cigarettes, uncomplicated; I10 Essential (primary) hypertension; I50.9 Heart failure, unspecified; F31.9 Bipolar disorder, unspecified; K64.9 Unspecified hemorrhoids; R76.11 Nonspecific reaction to tuberculin skin test without active tuberculosis; Z88.8 Allergy status to other drugs, medicaments and biological substances
CPT/HCPCS: 36415; 71046-TC-FY; 80053; 81003; 81015; 85027; 86593; 87389; 93005; 93010